=== PATIENT | female | born 1980 | race African-American/Black ===

== ENCOUNTER 2019-06-01 09:06 | Emergency (ER) | payer OTHER ==
[~2019-06-01] VITALS: Ht 170.2 cm; Wt 98.0 kg
[~2019-06-01 09:06] MED LIST: ALBU0.0912 IH; CEPH250C16 PO
[2019-06-01 09:16] VITALS: BP 119/68
--- NOTE | 2019-06-01 09:24 | NUR ---
C/O VOMITING X2-3 DAYS AND + HOME PREG TEST. DENIES FEVER, DIARRHEA OR AB PAIN. LMP 05/03/19. NO HX OF ABORTIONS/MISCARRIAGES. HAS NOT BEEN CONFIRMED BY US. VSS. AA0X4. BED IS DOWN, LOCKED, BED RAIL X 1, ERMD TO SEE PT. HX: GERD RX: OMEPRAZOLE
--- NOTE | 2019-06-01 09:34 | NUR ---
DR WOODALL AT BEDSIDE
[2019-06-01] MEDS ORDERED: ONDANSETRON 4 MG ODT PO ONE (09:40)
[2019-06-01] MEDS ORDERED: ALUMINUM HYD/MAG/SIMETHICONE 30 ML UDC PO ONE (09:40)
--- NOTE | 2019-06-01 10:21 | NUR ---
PT RESTING IN BED COMFORTABLY. RR EVEN AND UNLABORED. AA0X4
--- NOTE | 2019-06-01 11:11 | NUR ---
DR WOODALL AT BEDSIDE REEVALUATING
[2019-06-01 11:20] VITALS: BP 119/68
--- NOTE | 2019-06-01 11:20 | NUR ---
Patient discharged with v/s stable. Written and verbal after care instructions given and explained. Patient alert, oriented and verbalized understanding of instructions. Ambulatory with steady gait. All questions addressed prior to discharge. ID band removed. Patient advised to follow up with PMD. Rx of DICLEGIS given. Patient educated on indication of medication including possible reaction and side effects. Opportunity to ask questions provided and answered.
== END 2019-06-01 11:20 | disposition home or self-care (01) ==
LOC: MED 09:06
DX: O21.8 Other vomiting complicating pregnancy (principal); O26.899 Other specified pregnancy related conditions, unspecified trimester; R10.9 Unspecified abdominal pain; R19.7 Diarrhea, unspecified; J45.909 Unspecified asthma, uncomplicated; K21.9 Gastro-esophageal reflux disease without esophagitis; E78.5 Hyperlipidemia, unspecified; Z90.89 Acquired absence of other organs; Z79.899 Other long term (current) drug therapy; Z88.1 Allergy status to other antibiotic agents; Z88.8 Allergy status to other drugs, medicaments and biological substances
CPT/HCPCS: 36415; 81002; 81025; 84702; 99283; Q0162

== ENCOUNTER 2019-07-05 12:25 | Emergency (ER) | payer OTHER ==
[~2019-07-05] VITALS: Ht 170.2 cm; Wt 100.2 kg
[2019-07-05 12:31] VITALS: BP 126/68
--- NOTE | 2019-07-05 13:15 | NUR ---
LAB DRAWING PTS BLOOD IN CHAIR, PT THEN TO RETURN TO [facility] UNTIL BED IS AVAILABLE
--- NOTE | 2019-07-05 13:24 | NUR ---
PT GOING TO US VIA WHEELCHAIR
[2019-07-05 13:38] LABS: BASOPHILS % (AUTO) 0.5 % (0.0-2.0); EOSINOPHILS # (AUTO) 0.1 K/uL (0-0.4); EOSINOPHILS % (AUTO) 1.6 % (0.0-4.0); HEMATOCRIT 38.6 % (36-48); HEMOGLOBIN 12.5 g/dL (12.0-16.0); LYMPHOCYTES # (AUTO) 2.1 K/uL (2.5-16.5); LYMPHOCYTES % (AUTO) 28.4 % (20.5-51.1); MEAN CORPUSCULAR HEMOGLOBIN 25 pg (27-31); MEAN CORPUSCULAR HGB CONC 32 g/dL (33-37); MEAN CORPUSCULAR VOLUME 78.3 fL (80-94); MONOCYTES # (AUTO) 0.6 K/uL (0.8-1.0); MONOCYTES % (AUTO) 7.6 % (1.7-9.3); NEUTROPHILS # (AUTO) 4.5 K/uL (1.8-7.7); NEUTROPHILS % (AUTO) 61.9 % (42.2-75.2); PLATELET COUNT (AUTO) 355 K/uL (140-450); RED BLOOD CELL COUNT(AUTO) 4.93 MIL/uL (4.20-5.40); RED CELL DISTRIBUTION WIDTH 17.6 % (11.6-13.7); WHITE BLOOD COUNT (AUTO) 7.3 K/uL (4.8-10.8)
[2019-07-05 13:49] LABS: ANION GAP 15.5 (8-16); CARBON DIOXIDE 24.9 mmol/L (21-32); CREATININE 0.9 mg/dL (0.6-1.3); POTASSIUM 3.4 mmol/L (3.5-5.1)
[2019-07-05 13:55] LABS: ALBUMIN 3.4 g/dL (3.4-5.0); TOTAL BILIRUBIN 0.4 mg/dL (0.0-1.0)
[2019-07-05 14:05] LABS: APPEARANCE,URINE CLEAR (CLEAR); BILIRUBIN,URINE NEGATIVE (NEGATIVE); BLOOD, URINE 3+ (NEGATIVE); COLOR,URINE YELLOW (YELLOW); LEUKOCYTE ESTERASE ,URINE NEGATIVE (NEGATIVE); NITRITE, URINE NEGATIVE (NEGATIVE); PH,URINE 7.5 (5.0-9.0); UGLUCOSE NEGATIVE (NEGATIVE)
[2019-07-05 14:21] LABS: RBC,URINE 0-5 /HPF (0-5); WBC,URINE NONE SEEN /HPF (0-5)
--- NOTE | 2019-07-05 14:37 | NUR ---
PT AMBULATED TO ER BED 11
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
--- NOTE | 2019-07-05 14:57 | NUR ---
PT STATES SHE GAVE URINE AND LAB COLLECTED IT WHEN HER BLOOD WAS DRAWN
--- NOTE | 2019-07-05 15:03 | NUR ---
MARIO HODGES AT BEDSIDE
--- NOTE | 2019-07-05 15:22 | NUR ---
VS STABLE. PT ALERT AND AWAKE. FRIEND BEDSIDE
--- NOTE | 2019-07-05 15:38 | NUR ---
PT STATES SHE IS NOT HOMELESS, THEREFORE, HOMELESS ASSESSMENT NOT COMPLETED
--- NOTE | 2019-07-05 15:39 | NUR ---
EKG SHOWS SR, HR AT 69
[2019-07-05 16:29] VITALS: BP 117/73
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
--- NOTE | 2019-07-05 16:29 | NUR ---
PT APPEARS TO BE IN NO DISTRESS. PT ON PHONE PRIOR TO ENTERING ROOM FOR DISCHARGE INSTRUCTIONS
== END 2019-07-05 16:29 | disposition home or self-care (01) ==
LOC: MED 12:25
DX: O20.0 Threatened abortion (principal); O26.891 Other specified pregnancy related conditions, first trimester; R55 Syncope and collapse; O99.511 Diseases of the respiratory system complicating pregnancy, first trimester; J45.909 Unspecified asthma, uncomplicated; O99.611 Diseases of the digestive system complicating pregnancy, first trimester; K21.9 Gastro-esophageal reflux disease without esophagitis; Z79.51 Long term (current) use of inhaled steroids; Z3A.08 8 weeks gestation of pregnancy; Z79.2 Long term (current) use of antibiotics; Z88.1 Allergy status to other antibiotic agents
CPT/HCPCS: 36415; 76817; 80053; 81001; 84702; 85025; 86900; 86901; 93005; 99284

== ENCOUNTER 2019-07-09 10:22 | Emergency (ER) | payer OTHER ==
[~2019-07-09] VITALS: Ht 170.2 cm; Wt 98.5 kg
[2019-07-09 10:23] VITALS: BP 118/70
[2019-07-09 11:45] VITALS: BP 105/66
== END 2019-07-09 11:45 | disposition home or self-care (01) ==
LOC: MED 10:22
DX: O03.9 Complete or unspecified spontaneous abortion without complication (principal); J45.909 Unspecified asthma, uncomplicated; K21.9 Gastro-esophageal reflux disease without esophagitis; Z79.899 Other long term (current) drug therapy; Z88.1 Allergy status to other antibiotic agents; Z87.19 Personal history of other diseases of the digestive system
CPT/HCPCS: 36415; 81002; 84702; 99283

== ENCOUNTER 2019-08-22 16:49 | Emergency (ER) | payer OTHER ==
[~2019-08-22] VITALS: Ht 170.2 cm; Wt 98.5 kg
[2019-08-22 16:56] VITALS: BP 130/83
--- NOTE | 2019-08-22 17:04 | NUR ---
WAIT AT LOBBY
--- NOTE | 2019-08-22 19:06 | NUR ---
PT AMBULATED TO BED 12
--- NOTE | 2019-08-22 19:13 | NUR ---
RECEIVED REPORT FROM GERALDO DUARTE.
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
[2019-08-22] MEDS ORDERED: IBUPROFEN 800 MG TAB PO ONE (21:10)
--- NOTE | 2019-08-22 21:19 | NUR ---
PT TAKEN TO XRAY
[2019-08-22 22:30] VITALS: BP 128/81
--- NOTE | 2019-08-22 22:30 | NUR ---
Patient discharged with v/s stable. Written and verbal after care instructions given and explained. Patient alert, oriented and verbalized understanding of instructions. Ambulatory with steady gait. All questions addressed prior to discharge. ID band removed. Patient advised to follow up with PMD. Rx of MOTRIN; ROBBAXIN given. Patient educated on indication of medication including possible reaction and side effects. Opportunity to ask questions provided and answered.
== END 2019-08-22 22:30 | disposition home or self-care (01) ==
LOC: MED 16:49
DX: S16.1XXA Strain of muscle, fascia and tendon at neck level, initial encounter (principal); S20.211A Contusion of right front wall of thorax, initial encounter; R51 Headache; J45.909 Unspecified asthma, uncomplicated; K21.9 Gastro-esophageal reflux disease without esophagitis; Z88.1 Allergy status to other antibiotic agents; Z79.899 Other long term (current) drug therapy; X50.1XXA Overexertion from prolonged static or awkward postures, initial encounter; Y93.89 Activity, other specified; Y92.481 Parking lot as the place of occurrence of the external cause; Y99.8 Other external cause status
CPT/HCPCS: 71045; 72040; 99283

== ENCOUNTER 2020-03-17 00:40 | Emergency (ER) | payer OTHER, SELFPAY ==
[~2020-03-17] VITALS: Ht 170.2 cm; Wt 97.5 kg
[2020-03-17 01:10] VITALS: BP 137/89
[2020-03-17] MEDS ORDERED: IBUPROFEN 600 MG TAB PO ONE (01:10)
--- NOTE | 2020-03-17 01:12 | NUR ---
PT TRIAGED AND SENT TO TENT
--- NOTE | 2020-03-17 01:25 | NUR ---
COVID SWAB COLLECTED AND SENT TO LAB.
--- NOTE | 2020-03-17 01:37 | NUR ---
Patient discharged with v/s stable. Written and verbal after care instructions given and explained. Patient verbalized understanding. Ambulatory with steady gait. All questions addressed prior to discharge. Advised to follow up with PMD.
== END 2020-03-17 01:37 | disposition home or self-care (01) ==
LOC: MED 00:40
DX: R51 Headache (principal); R63.0 Anorexia; J45.909 Unspecified asthma, uncomplicated; K21.9 Gastro-esophageal reflux disease without esophagitis; Z88.1 Allergy status to other antibiotic agents; Z79.899 Other long term (current) drug therapy
CPT/HCPCS: 99283; U0003

== ENCOUNTER 2020-04-18 22:43 | Emergency (ER) | payer OTHER, SELFPAY ==
[~2020-04-18] VITALS: Ht 170.2 cm; Wt 103.9 kg
[2020-04-18 23:11] VITALS: BP 145/97
[2020-04-19 00:41] VITALS: BP 145/97
== END 2020-04-19 00:41 | disposition home or self-care (01) ==
LOC: MED 22:43
DX: J10.1 Influenza due to other identified influenza virus with other respiratory manifestations (principal); K21.9 Gastro-esophageal reflux disease without esophagitis; J45.909 Unspecified asthma, uncomplicated; Z88.1 Allergy status to other antibiotic agents
CPT/HCPCS: 71045; 87804; 99284; Q0092